=== PATIENT | male | born 1970 | race Caucasian/White ===

== ENCOUNTER → 2017-01-04 18:11 | Outpatient (CLI) | payer OTHER ==
[2017-01-06 06:14] LABS: RAPID PLASMA REAGIN Non Reactive (Non Reactive)
[2017-01-06 08:17] LABS: HEPATITIS C ANTIBODY <0.1 (0.0-0.9)
== END | disposition home or self-care (01) ==
LOC: D.LABREF 18:11
PROVIDERS: Family Medicine
DX: Z20.9 Contact with and (suspected) exposure to unspecified communicable disease (principal)

== ENCOUNTER 2018-03-12 23:06 | Emergency (ER) | payer BC ==
[2018-03-12 23:46] LABS: HEMATOCRIT 44.4 % (42.0-54.0); HEMOGLOBIN 15.2 g/dL (13.5-17.5); LYMPHOCYTES 39.3 % (15-50); MCH 29.5 pg (26.0-34.0); MCHC 34.2 g/dL (31.0-37.0); MCV 86.2 fL (80.0-100.0); MEAN PLATELET VOLUME 8.9 fL (7.4-10.4); NEUTROPHILS 50.3 % (40-80); PLATELET COUNT 168 10x3/uL (130-400); RBC 5.15 10x6/uL (4.20-6.10); RDW 13.7 % (11.5-14.5); WBC 6.4 10x3/uL (4.8-10.8)
[2018-03-13 00:04] LABS: ALBUMIN 3.3 g/dL (3.4-5.0); ALKALINE PHOSPHATASE 109 U/L (46-116); ALT (SGPT) 26 U/L (10-68); CALC OSMOLALITY 287 mosm/kg (275-300); CALCIUM 9.2 mg/dL (8.5-10.1); CARBON DIOXIDE 23.7 mmol/L (21.0-32.0); CHLORIDE - SERUM 108 mmol/L (98-107); CREATININE - SERUM 1.3 mg/dL (0.6-1.3); GLUCOSE 128 mg/dL (74-106); POTASSIUM - SERUM 3.8 mmol/L (3.5-5.1); PROTEIN - SERUM 7.6 g/dL (6.4-8.2); SODIUM 142 mmol/L (136-145); UREA NITROGEN 21 mg/dL (7-18); eGFR NON AFRICAN AMERICAN 63 mL/min (90-120)
[2018-03-13 00:07] LABS: TROPONIN-I < 0.017 ng/mL (0.000-0.060)
[2018-03-26] MEDS ORDERED: GENVOYA PO (15:47)
[2018-03-27 08:40] VITALS: BMI 37.3
== END 2018-03-13 02:24 | disposition home or self-care (01) ==
LOC: D.ER 23:06
PROVIDERS: Emergency Medicine
DX: J45.901 Unspecified asthma with (acute) exacerbation (principal); B20 Human immunodeficiency virus [HIV] disease

== ENCOUNTER 2018-03-15 19:16 | Emergency (ER) | payer BC ==
[2018-03-15 21:13] LABS: APPEARANCE CLEAR (CLEAR); BILIRUBIN NEGATIVE (NEGATIVE); COLOR YELLOW (YELLOW); GLUCOSE NEGATIVE (NEGATIVE); KETONE NEGATIVE (NEGATIVE); NITRITE NEGATIVE (NEGATIVE); PROTEIN NEGATIVE (NEGATIVE); SPECIFIC GRAVITY 1.015 (1.005-1.020); UROBILINOGEN NORMAL (NORMAL)
[2018-03-15 21:39] LABS: BASOPHILS 0.6 % (0-2); EOSINOPHILS 4.3 % (0-7); HEMATOCRIT 45.3 % (42.0-54.0); HEMOGLOBIN 15.8 g/dL (13.5-17.5); IMMATURE GRANULOCYTES 4.8 % (0-5); LYMPHOCYTES 30.3 % (15-50); MCH 30.6 pg (26.0-34.0); MCHC 34.9 g/dL (31.0-37.0); MCV 87.6 fL (80.0-100.0); MEAN PLATELET VOLUME 10.1 fL (7.4-10.4); MONOCYTES 9.3 % (2-11); NEUTROPHILS 50.7 % (40-80); PLATELET COUNT 164 10x3/uL (130-400); RBC 5.17 10x6/uL (4.20-6.10); RDW 13.8 % (11.5-14.5); WBC 7.9 10x3/uL (4.8-10.8)
[2018-03-15 21:50] LABS: INR 0.98 (0.85-1.17); PROTIME 12.6 SECONDS (11.6-15.0)
[2018-03-15 22:08] LABS: ALBUMIN 3.4 g/dL (3.4-5.0); ALKALINE PHOSPHATASE 105 U/L (46-116); ALT (SGPT) 46 U/L (10-68); BILIRUBIN - TOTAL 0.25 mg/dL (0.2-1.3); CALC OSMOLALITY 279 mosm/kg (275-300); CALCIUM 9.1 mg/dL (8.5-10.1); CARBON DIOXIDE 25.4 mmol/L (21.0-32.0); CHLORIDE - SERUM 106 mmol/L (98-107); CREATININE - SERUM 1.2 mg/dL (0.6-1.3); GLUCOSE 97 mg/dL (74-106); POTASSIUM - SERUM 3.8 mmol/L (3.5-5.1); PROTEIN - SERUM 7.5 g/dL (6.4-8.2); SODIUM 138 mmol/L (136-145); UREA NITROGEN 24 mg/dL (7-18); eGFR NON AFRICAN AMERICAN 69 mL/min (90-120)
[2018-03-15 22:15] LABS: CREATINE KINASE 42 UL (21-232); LIPASE 126 U/L (73-393); MAGNESIUM - SERUM 2.2 mg/dL (1.8-2.4); PRO BNP 82 pg/mL (0-125); THYROID STIMULATING HORMONE 1.14 uIU/mL (0.36-3.74)
[2018-03-15 22:23] LABS: TROPONIN-I < 0.017 ng/mL (0.000-0.060)
[2018-03-26] MEDS ORDERED: GENVOYA PO (15:47)
[2018-03-27 08:40] VITALS: BMI 37.3
== END 2018-03-16 01:45 | disposition home or self-care (01) ==
LOC: D.ER 19:16
PROVIDERS: Nurse Practitioner Family
DX: R05 Cough (principal); B20 Human immunodeficiency virus [HIV] disease; J45.909 Unspecified asthma, uncomplicated

== ENCOUNTER 2018-03-27 07:31 | Day surgery (SDC) | payer BC ==
[2018-03-26 16:20] LABS: BASOPHILS 0.4 % (0-2); EOSINOPHILS 4.5 % (0-7); HEMATOCRIT 46.1 % (42.0-54.0); HEMOGLOBIN 16.1 g/dL (13.5-17.5); IMMATURE GRANULOCYTES 2.7 % (0-5); LYMPHOCYTES 30.5 % (15-50); MCH 30.8 pg (26.0-34.0); MCHC 34.9 g/dL (31.0-37.0); MCV 88.3 fL (80.0-100.0); MONOCYTES 7.5 % (2-11); NEUTROPHILS 54.4 % (40-80); PLATELET COUNT 141 10x3/uL (130-400); RBC 5.22 10x6/uL (4.20-6.10); RDW 14.2 % (11.5-14.5); WBC 8.4 10x3/uL (4.8-10.8)
[~2018-03-27] VITALS: Ht 172.7 cm; Wt 111.1 kg
--- NOTE | ~2018-03-27 | OP ---
PATIENT NAME: VISHAL LEBRON MEDICAL RECORD: [id number] :74 LOCATION:[facility] ADMISSION DATE: SURGEON: JUNIOR WILLS MD DATE OF OPERATION: 03/27/2018 SURGEON: Junior Wills MD PREOPERATIVE DIAGNOSIS: Anal condyloma. POSTOPERATIVE DIAGNOSIS: Anal condyloma. PROCEDURE PERFORMED: CO2 laser destruction of anal condyloma, approximately 30 minutes. ANESTHESIA: General. COMPLICATIONS: None. SPECIMENS: Anal condyloma. Case was dirty. OPERATIVE COURSE: After consent was obtained, the patient was taken to the operating room and placed in the supine position on the operating table. Next, general anesthesia was given. The perineum was prepped and draped in typical sterile fashion. Timeout was taken to confirm the correct patient and procedure. The patient was placed in the stirrups. At this time, approximately 30 minutes was spent using the CO2 laser to destroy anal warts too numerous to count. Again, approximately 30 minutes was spent doing on perianal destruction of anal condyloma with a CO2 laser. The patient tolerated the procedure well. At the end of case, all needle and instrument counts were correct. No complications occurred. The patient was extubated and transferred to the PACU in stable condition. TRANSINT:[id number] Voice Confirmation ID: [id number] DOCUMENT ID: [id number] JUNIOR WILLS MD at 1317 CC: [id number] DICTATION DATE: 03/27/18 1040 FUR MIXER: 03/27/18 1249 [facility] [address] [place] [address]
[~2018-03-27 07:31] MED LIST: GENVOYA PO
[2018-03-27 08:40] VITALS: BP 125/76; Ht 172.7 cm; Wt 111.1 kg
== END 2018-03-27 13:37 | disposition home or self-care (01) ==
LOC: D.OPS 07:31 → D.PAN 09:30 → D.OPS 11:00
PROVIDERS: Anesthesiology
DX: A63.0 Anogenital (venereal) warts (principal); Z01.812 Encounter for preprocedural laboratory examination

== ENCOUNTER 2018-05-23 23:17 | Emergency (ER) | payer SELFPAY ==
[~2018-05-23] VITALS: Ht 172.7 cm; Wt 101.4 kg
[2018-05-23 23:21] VITALS: Ht 172.7 cm; Wt 101.4 kg
[2018-05-23 23:56] LABS: HEMATOCRIT 41.3 % (42.0-54.0); HEMOGLOBIN 14.3 g/dL (13.5-17.5); LYMPHOCYTES 44.6 % (15-50); MCH 29.5 pg (26.0-34.0); MCHC 34.6 g/dL (31.0-37.0); MCV 85.3 fL (80.0-100.0); MEAN PLATELET VOLUME 9.6 fL (7.4-10.4); NEUTROPHILS 44.7 % (40-80); PLATELET COUNT 139 10x3/uL (130-400); RBC 4.84 10x6/uL (4.20-6.10); RDW 13.4 % (11.5-14.5); WBC 6.1 10x3/uL (4.8-10.8)
[2018-05-24 00:13] LABS: ALBUMIN 3.3 g/dL (3.4-5.0); ALKALINE PHOSPHATASE 101 U/L (46-116); ALT (SGPT) 31 U/L (10-68); BILIRUBIN - TOTAL 0.37 mg/dL (0.2-1.3); CALC OSMOLALITY 282 mosm/kg (275-300); CALCIUM 8.5 mg/dL (8.5-10.1); CARBON DIOXIDE 21.5 mmol/L (21.0-32.0); CHLORIDE - SERUM 111 mmol/L (98-107); GLUCOSE 127 mg/dL (74-106); POTASSIUM - SERUM 3.4 mmol/L (3.5-5.1); PROTEIN - SERUM 7.4 g/dL (6.4-8.2); SODIUM 140 mmol/L (136-145); UREA NITROGEN 19 mg/dL (7-18); eGFR NON AFRICAN AMERICAN 86 mL/min (90-120)
[2018-05-24 00:28] LABS: CKMB 0.3 U/L (0.0-3.6); CREATINE KINASE 43 UL (21-232); PRO BNP 11 pg/mL (0-125); TROPONIN-I < 0.017 ng/mL (0.000-0.060)
[2018-05-24 00:30] LABS: APTT 25.4 SECONDS (22.8-39.4); INR 0.95 (0.85-1.17); PROTIME 12.3 SECONDS (11.6-15.0)
[2018-05-24 00:31] LABS: D-DIMER-QUANTITATIVE 0.41 ug/mLFEU (0.20-0.54)
[2018-05-24] MEDS ORDERED: OMNICEF300 MG PO (01:08)
[2018-05-24] MEDS ORDERED: ZPAK PO (01:08)
[2018-05-24] MEDS ORDERED: VENTOLIN HFA18 GM INH (01:11)
[2018-05-24] MEDS ORDERED: MEDROL DOSE PACK4 MG PO (01:11)
[2018-05-24 02:22] VITALS: BP 118/74
== END 2018-05-24 01:59 | disposition home or self-care (01) ==
LOC: D.ER 23:17
PROVIDERS: Family Medicine
DX: J20.9 Acute bronchitis, unspecified (principal); R06.02 Shortness of breath; B20 Human immunodeficiency virus [HIV] disease; I10 Essential (primary) hypertension

== ENCOUNTER 2018-07-07 14:08 | Emergency (ER) | payer SELFPAY ==
[~2018-07-07] VITALS: Ht 172.7 cm; Wt 109.1 kg
[~2018-07-07 14:08] MED LIST changes: +MEDROL DOSE PACK4 MG PO; +OMNICEF300 MG PO; +VENTOLIN HFA18 GM INH; +ZPAK PO
[2018-07-07 14:22] VITALS: Ht 172.7 cm; Wt 109.1 kg
[2018-07-07] MEDS ORDERED: PROAIR HFA8.5 GM INH (15:39)
[2018-07-07 15:55] VITALS: BP 142/86
== END 2018-07-07 15:56 | disposition home or self-care (01) ==
LOC: D.ER 14:08
DX: J40 Bronchitis, not specified as acute or chronic (principal); J06.9 Acute upper respiratory infection, unspecified; R09.89 Other specified symptoms and signs involving the circulatory and respiratory systems; R42 Dizziness and giddiness

== ENCOUNTER 2018-12-13 12:10 | Inpatient (IN) | payer SELFPAY ==
[~2018-12-13] VITALS: Ht 172.7 cm; Wt 131.2 kg
[~2018-12-13 12:10] MED LIST changes: +PROAIR HFA8.5 GM INH
--- NOTE | 2018-12-13 12:40 | NUR ---
RT CONTACTED FOR I AM AT [facility].
[2018-12-13 13:41] LABS: BASOPHILS 0.5 % (0-2); EOSINOPHILS 1.3 % (0-7); HEMATOCRIT 45.2 % (42.0-54.0); HEMOGLOBIN 15.2 g/dL (13.5-17.5); IMMATURE GRANULOCYTES 5.1 % (0-5); LYMPHOCYTES 37.7 % (15-50); MCH 29.6 pg (26.0-34.0); MCHC 33.6 g/dL (31.0-37.0); MCV 88.1 fL (80.0-100.0); MEAN PLATELET VOLUME 10.5 fL (7.4-10.4); MONOCYTES 5.4 % (2-11); PLATELET COUNT 133 10x3/uL (130-400); RBC 5.13 10x6/uL (4.20-6.10); RDW 13.8 % (11.5-14.5); WBC 6.1 10x3/uL (4.8-10.8)
[2018-12-13 13:59] LABS: ALBUMIN 3.3 g/dL (3.4-5.0); ALKALINE PHOSPHATASE 122 U/L (46-116); ALT (SGPT) 42 U/L (10-68); BILIRUBIN - TOTAL 0.24 mg/dL (0.2-1.3); CALC OSMOLALITY 289 mosm/kg (275-300); CALCIUM 8.5 mg/dL (8.5-10.1); CARBON DIOXIDE 24.6 mmol/L (21.0-32.0); CHLORIDE - SERUM 109 mmol/L (98-107); CREATININE - SERUM 1.2 mg/dL (0.6-1.3); GLUCOSE 142 mg/dL (74-106); PROTEIN - SERUM 7.3 g/dL (6.4-8.2); SODIUM 144 mmol/L (136-145); UREA NITROGEN 16 mg/dL (7-18); eGFR NON AFRICAN AMERICAN 69 mL/min (90-120)
[2018-12-13 14:04] LABS: PRO BNP 52 pg/mL (0-125); TROPONIN-I < 0.017 ng/mL (0.000-0.060)
[2018-12-13 14:09] VITALS: BP 169/88
--- NOTE | 2018-12-13 14:45 | NUR ---
RECEIVED PATIENT TO FLOOR. VITALS TAKEN. PATIENT C/O TIGHTNESS IN CHEST AND NUMBNESS IN LEFT ARM AND DIZZINESS.
--- NOTE | 2018-12-13 15:28 | NUR ---
REPORT RECEIVED FROM ERICK ANDINO IN ER. PATIENT COMING TO ROOM BY BED.
[2018-12-13 16:25] VITALS: BP 169/88; BMI 27.2
[2018-12-13 20:00] VITALS: BP 105/64
--- NOTE | 2018-12-13 20:20 | NUR ---
EVENING ROUNDS COMPLETED. REPORT RECEIVED. PT SITTING UP IN ROOM WITH EYES OPEN, RR EVEN AND UNLABORED. INTRODUCED SELF TO PT. PT DENIES FURTHER NEEDS, ASSISTED PT IN PUTTING ON GOWN. NO S/S OF DISTRESS. BED IN LOW POSITION. CALL LIGHT IN REACH. WILL CTM.
--- NOTE | 2018-12-13 23:57 | NUR ---
PT SITTING ON SIDE OF BED. DENIES ANY DISCOMFORT. CALL LIGHT WITHIN REACH.
--- NOTE | 2018-12-14 00:09 | NUR ---
INSERTED 20G INTO R HAND X2 STICKS. IV PATENT AND C/D/I. NO C/O PAIN/DISCMOFORT AT IV SITE. SR UP X2, BED IN LOWEST POSITION, CL IN REACH.
[2018-12-14 00:27] VITALS: BP 111/70
[2018-12-14] MEDS ORDERED: BACTRIM 400-801 TAB PO (00:54)
--- NOTE | 2018-12-14 00:56 | NUR ---
PT SITTING UP ON SIDE OF BED, NO S/S OF DISTRESS NOTED. PT STATES HE WANTS MEDICATIONS TO HELP HIM SLEEP. WILL PASS ONTO DAY SHIFT.
[2018-12-14 05:02] VITALS: BP 102/59
--- NOTE | 2018-12-14 06:40 | NUR ---
PT SITTING UP ON SIDE OF BED WITH EYES OPEN, NO S/S OF DISTRESS NOTED. DENIES FURTHER NEEDS. 68 SINUS ON TELE. BED IN LOW POSITION. CALL LIGHT IN REACH. WILL CTM.
[2018-12-14 07:45] VITALS: BP 95/62
--- NOTE | 2018-12-14 08:00 | NUR ---
AM ROUNDS COMPLETED. VSS, AAOX3, RR UNLABORED, NO SS OF DISTRESS. PT STATES HE DID NOT GET MUCH SLEEP LAST NIGHT. AM MEDS GIVEN. PT DENIES ANY FURTHER NEEDS AT THIS TIME. WILL CPOC.
--- NOTE | 2018-12-14 12:45 | NUR ---
STARTED IV ON PT LEFT AC. PT TOLERATED WELL. PT NPO FOR 4HOURS FOR PE STUDIES. WILL CPOC.
--- NOTE | 2018-12-14 13:39 | NUR ---
RESTING QUIETLY NAD NOTED
--- NOTE | 2018-12-14 14:32 | NUR ---
PT OUT FOR CTA, CHEST PE PROTOCOL. WILL CPOC.
--- NOTE | 2018-12-14 15:35 | NUR ---
PT CURRENTLY RESTING IN BED WITH BOTH EYES OPEN. NO S/S OF DISTRESS. PROVIDER ORDERED SCD FOR PT. PT ON SCD. WILL CPOC. CL IN REACH, BED IN LOW.
--- NOTE | 2018-12-14 19:48 | NUR ---
EVENING ROUNDS COMPLETED. REPORT RECEIVED. PT IS SITTING UP ON SIDE OF BED WITH EYES OPEN, RR EVEN AND UNLABORED. INTRODUCED SELF TO PT. PT DENIES FURTHER NEEDS. PT IS AAO AND ANSWERS QUESTIONS APPROPRIATELY. NO S/S OF DISTRESS NOTED. CALL LIGHT IS IN REACH. WILL CTM.
[2018-12-14 20:00] VITALS: BP 117/63
--- NOTE | 2018-12-14 23:13 | NUR ---
PT SITTING UP IN BED WITH EYES OPEN, RR EVEN AND UNLABORED. PT REQUESTED ADDITIONAL FOOD AND WAS PROVIDED SANDWHICH, PT STATED HE MADE A SPECIAL REQUEST TO HAVE LARGER PORTIONS OF FOOD DURING THE DAY. PT STATES HE WANTS TWO SANDWHICHES, PT WAS TOLD THE REMAINING SANDWHICHES ARE RESERVED FOR PT'S ARRIVING TO THE FLOOR AND WE COULD ONLY ALLOW HIM TO BE GIVEN ONE BUT THERE ARE OTHER ADDITIONAL LATE NIGHT SNACK OPTIONS FOR PT. WILL CTM.
[2018-12-15] VITALS: BP 117/65
--- NOTE | 2018-12-15 01:25 | NUR ---
PT SITTING UP IN BED WITH EYES CLOSED, RR EVEN AND UNLABORED. BED IN LOW POSITION. SIDE RAILS UP X2. NO S/S OF DISTRESS NOTED. CALL LIGHT IN REACH. WILL CTM.
--- NOTE | 2018-12-15 02:17 | NUR ---
PT RESTING IN BED WITH NO DISTRESS. CALL LIGHT IN REACH. MONITOR AND CPOC.
[2018-12-15 04:00] VITALS: BP 119/62
--- NOTE | 2018-12-15 06:30 | NUR ---
PT RESTING COMFORTABLY IN BED WITH EYES CLOSED, RR EVEN AND UNLABORED. BED IN LOW POSITION. NO S/S OF DISTRESS NOTED. CALL LIGHT IN REACH. WILL CTM.
--- NOTE | 2018-12-15 07:10 | NUR ---
RECIEVED BEDSIDE REPORT. AM ROUNDS AND ASSESSMENT COMPLETED. VSS, AA0X3, PT STATES "I HAD OCCASIONAL EPISODES OF COUGHING AND WAKING UP LAST NIGHT." PT HAVE NO S/S OF DISTRESS. RR UNLABORED. PT CURRENTLY RECIEVING BREATHING TREATMENT. WILL CPOC. CL IN REACH, BED IN LOW.
[2018-12-15 08:22] VITALS: BP 130/51
[2018-12-15 10:50] VITALS: BP 130/51
[2018-12-15 17:41] VITALS: BP 128/61
--- NOTE | 2018-12-15 19:40 | NUR ---
EVENING ROUNDS COMPLETED. REPORT RECEIVED. PT SITTING UP IN BEDSIDE CHAIR WITH EYES OPEN, RR EVEN AND UNLABORED. INTRODUCED SELF TO PT. PT REQUESTS EVENING SNACK AND SOMETHING TO DRINK. PROVIDED PT WITH APPLE JUICE AND KIKE CRACKERS. PT DENIES FURTHER NEEDS AND COMPLAINTS OF PAIN. NO S/S OF DISTRESS NOTED. CALL LIGHT IN REACH. WILL CTM.
[2018-12-15 20:38] VITALS: BP 125/66
[2018-12-16] VITALS: BP 129/74
--- NOTE | 2018-12-16 01:17 | NUR ---
PT LYING IN BED WITH EYES CLOSED, RR EVEN AND UNLABORED. BED IN LOW POSITION. NO S/S OF DISTRESS NOTED. CALL LIGHT IN REACH. WILL CTM.
--- NOTE | 2018-12-16 02:52 | NUR ---
PT RESTING IN BED WITH NO DISTRESS. RESPS EVEN/NONLABORED. CALL LIGHT IN REACH. SR UP X 2. MONITOR AND CPOC.
[2018-12-16 04:00] VITALS: BP 131/54
--- NOTE | 2018-12-16 05:26 | NUR ---
PT LYING IN BED WITH EYES CLOSED, RR EVEN AND UNLABORED. BED IN LOW POSITION. NO S/S OF DISTRESS NOTED. CALL LIGHT IN REACH. WILL CTM.
[2018-12-16 07:42] VITALS: BP 126/58
--- NOTE | 2018-12-16 09:55 | NUR ---
UP IN CHAIR WITH CALL LIGHT IN REACH. WILL CONT. PLAN OF CARE.
--- NOTE | 2018-12-16 11:05 | NUR ---
PT SITTING IN RECLINER CHAIR. PT HAS NO FURTHER NEEDS AT THIS TIME. CL IN REACH.
[2018-12-16 11:18] VITALS: BP 146/84
[2018-12-16 15:36] VITALS: BP 139/68
--- NOTE | 2018-12-16 16:26 | MORECARE ---
CASE MANAGEMENT DISCHARGE SUMMARY PATIENT: VISHAL LEBRON UNIT: [id number] ADM DATE: 12/13/18 AGE: 48 : 74 SEX: M ROOM/BED: D.2137 AUTHOR: GERALD OLMEDO PHYSICIAN: REFERRING PHYSICIAN: MARTY CIFUENTES MD DATE OF SERVICE: 12/16/18 Discharge Plan Patient Name: VISHAL LEBRON Facility: [facility]:[place] : 1970 Planned Disposition: Home Anticipated Discharge Date: 12/17/18 Discharge Date: Expected LOS: 4 Initial Reviewer: [email or web address] Initial Review Date: 12/16/2018 Generated: 12/16/18 5:26 pm Patient Name: VISHAL LEBRON Page [phone] at 1626 All edits/amendments must be made on the electronic document DICTATION DATE: 12/16/181625 CEMENT BLOCK MAKER: JON 12/16/181625 RPT#: [id number] DC DATE: STATUS: ADM IN [facility] [address] [place] [address] END OF REPORT
--- NOTE | 2018-12-16 16:34 | MORECARE ---
CASE MANAGEMENT DISCHARGE SUMMARY PATIENT: VISHAL LEBRON UNIT: [id number] ADM DATE: 12/13/18 AGE: 48 : 74 SEX: M ROOM/BED: D.2137 AUTHOR: GERALD OLMEDO PHYSICIAN: REFERRING PHYSICIAN: MARTY CIFUENTES MD DATE OF SERVICE: 12/16/18 Discharge Plan Patient Name: VISHAL LEBRON Facility: [facility]:[place] : 1970 Planned Disposition: Home Anticipated Discharge Date: 12/17/18 Discharge Date: Expected LOS: 4 Initial Reviewer: [email or web address] Initial Review Date: 12/16/2018 Generated: 12/16/18 5:34 pm DCPIA - Discharge Planning Initial Assessment Updated by [email or web address]: Ziggy Smith on 12/16/18 4:27 pm * Is the patient Alert and Oriented? Yes * How many steps to enter\exit or inside your home? 30 * PCP [facility] * Pharmacy [facility] ON [facility] * Preadmission Environment Home Alone * ADLs Independent * Equipment None * Other Equipment NO MEDICAL EQUIPMENT PROVIDER PREFERENCE * List name and contact numbers for known caregivers / representatives who currently or will assist patient after discharge: CANDICE LEBRON, SPOUSE, * Verbal permission to speak to the caregivers and representatives has been obtained from the patient. N/A * Community resources currently utilized None * Please name any agencies selected above. NONE * Additional services required to return to the preadmission environment? No * Can the patient safely return to the preadmission environment? Yes * Has this patient been hospitalized within the prior 30 days at any hospital? No Last DP export: 12/16/18 3:26 p Patient Name: VISHAL LEBRON Page [phone] at 1634 All edits/amendments must be made on the electronic document DICTATION DATE: 12/16/18 1633 MACHINE TAPER: JON 12/16/18 1633 RPT#: [id number] DC DATE: STATUS: ADM IN [facility] [address] [place] [address] END OF REPORT
--- NOTE | 2018-12-16 16:42 | MORECARE ---
CASE MANAGEMENT DISCHARGE SUMMARY PATIENT: VISHAL LEBRON UNIT: [id number] ADM DATE: 12/13/18 AGE: 48 : 74 SEX: M ROOM/BED: D.9361 AUTHOR: SHARA,DOC PHYSICIAN: REFERRING PHYSICIAN: MARTY CIFUENTES MD DATE OF SERVICE: 12/16/18 Discharge Plan Patient Name: VISHAL LEBRON Facility: [facility]:[place] : 1970 Planned Disposition: Home Anticipated Discharge Date: 12/17/18 Discharge Date: Expected LOS: 4 Initial Reviewer: [email or web address] Initial Review Date: 12/16/2018 Generated: 12/16/18 5:42 pm Comments DCP- Discharge Planning Updated by [id number]: Ziggy Smith on 12/16/18 3:[address] Patient Name: VISHAL LEBRON Encounter No: [id number] : 1970 Primary Insurance: UNINSURED DISCOUNT PLAN Anticipated DC Date: 12-17-2018 Planned Disposition: Home DISCHARGE PLANNING NOTE: CM RECEIVED ORDER TO CONSULT WITH PT REGARDING INADEQUATE ACCESS TO STABLE HOUSING AND NECESSARY MEDICAL EQUIPMENT; PT'S HOME CONDEMED AND WITH BLACK MOLD, PT USING 'S HOME OXYGEN CONCENTRATOR. CM MET WITH PT IN ROOM TO DISCUSS DISCHARGE PLANNING AND NEEDS. PT REPORTS LIVING AT HOME INDEPENDENTLY AND ALONE. PT HAS NO MEDICAL EQUIPMENT AND NO OUTSIDE SERVICES ASSISTING IN THE HOME. CM DISCUSSED AVAILABILITY OF HOME HEALTH, REHAB SERVICES AND MEDICAL EQUIPMENT. PT DENIES DISCHARGE NEEDS OTHER THAN HE MAY NEED OXYGEN AND A CPAP MACHINE. PT REPORTS BEING IN PROCESS OF MAKING PAYMENTS TO THE BANK SUPERVISOR OF GUIDANCE AND TESTING OF THE [employer]. PT REPORTS RENTING THE ROOMS AT THE [employer] AND LIVING IN THE HOUSE ON THE PROPERTY THAT HAS NOT BEEN CONDEMED, THAT HIS REMODELING TIME AND MONEY ALLOWS. PT REPORTS HE IS RIPPING OUT AND REMODELING PORTIONS OF THE HOME WITH MOLD BUT AGAIN REPORTS THE HOME HAS NOT BEEN COMDEMED. PT HAS NEVER BEEN TESTED FOR THE NEED OF OXGYEN. PT UNDERSTANDS THAT IF HE NEEDS IT, WITHOUT INSURANCE HE HAS TO PAY OUT OF POCKET. PT REPORTS HE HAS FUNDS TO PAY FOR ANY NEEDED MEDICAL EQUIPMENT. PT PLANS TO APPLY FOR INSURANCE NEXT MONTH AND IS AWARE OF THE GOVERNMENT WEBSITE TO APPLY FOR INSURANCE. CM DISCUSSED [employer] WHO WILL RENT OXYGEN CONCENTRATOR FOR $50 PER MONTH AND PORTABLE FOR $10 PER BOTTLE. CM EXPLAINED THAT PT WILL NEED SLEEP TESTING FOR CPAP. PT REPORTS UNDERSTANDING AND STATES HE ALREADY HAD OUTPATIENT APPOINTMENT SCHEDULED WITH DR. ACUÑA, [facility], PRIOR TO THIS ADMISSION. PT DENIES DISCHARGE NEEDS AT THIS TIME. PT REPORTS HIS HOME IS SAFE AND DENIES LIVING IN [facility], REPORTS HE IS REMODELING HIS HOME AND HAS BEEN REPLACING SOME MATERIALS THAT CONTAIN MOLD. PT REPORTS HAVING FUNDS TO PURCHASE ANY NEEDED MEDICAL EQUIPMENT. PT PLANS TO DISCHARGE HOME ALONE, DENIES NEEDS AT THIS TIME. Ziggy Smith, CASE MANAGEMENT DCPIA - Discharge Planning Initial Assessment Updated by [id number]: Ziggy Smith on 12/16/18 4:27 pm * Is the patient Alert and Oriented? Yes * How many steps to enter\exit or inside your home? 30 * PCP [facility] * Pharmacy [facility] ON [facility] * Preadmission Environment Home Alone * ADLs Independent * Equipment None * Other Equipment NO MEDICAL EQUIPMENT PROVIDER PREFERENCE * List name and contact numbers for known caregivers / representatives who currently or will assist patient after discharge: CANDICE LEBRON, SPOUSE, * Verbal permission to speak to the caregivers and representatives has been obtained from the patient. N/A * Community resources currently utilized None * Please name any agencies selected above. NONE * Additional services required to return to the preadmission environment? No * Can the patient safely return to the preadmission environment? Yes * Has this patient been hospitalized within the prior 30 days at any hospital? No Last DP export: 12/16/18 3:34 p Patient Name: VISHAL LEBRON Page [phone] at 1642 All edits/amendments must be made on the electronic document DICTATION DATE: 12/16/181641 LOCKER ROOM MANAGER: JON 12/16/181641 RPT#: [id number] DC DATE: STATUS: ADM IN [facility] [address] [place] [address] END OF REPORT
[2018-12-16 21:11] VITALS: BP 135/84
[2018-12-17 02:25] VITALS: BP 123/79
[2018-12-17 05:46] LABS: THYROID STIMULATING HORMONE 3.45 uIU/mL (0.36-3.74)
[2018-12-17 06:21] LABS: T4 THYROXINE 6.9 ug/dL (4.7-13.3)
[2018-12-17 06:24] VITALS: BP 142/76
[2018-12-17 08:14] VITALS: BP 121/82
--- NOTE | 2018-12-17 09:12 | NUR ---
UP IN CHAIR WITH CALL LIGHT IN REACH. RESP UL ON . DEBBIE NEEDS.
[2018-12-17 11:19] LABS: BASOS 0 % (Not Estab.); CD4 - % CD4 POS. LYMPH 13.5 % (30.8-58.5); CD4 - ABSOLUTE CD4 HELPER 257 /uL (359-1519); EOS 4 % (Not Estab.); EOS (ABSOLUTE) 0.2 x10E3/uL (0.0-0.4); HEMATOCRIT 41.4 % (37.5-51.0); HEMATOLOGY COMMENTS Note: (()); HEMOGLOBIN 13.3 g/dL (13.0-17.7); LYMPHS 35 % (Not Estab.); LYMPHS (ABSOLUTE) 1.9 x10E3/uL (0.7-3.1); MCH 28.5 pg (26.6-33.0); MCHC 32.1 g/dL (31.5-35.7); MCV 89 fL (79-97); MONOCYTES 5 % (Not Estab.); MONOCYTES (ABSOLUTE) 0.3 x10E3/uL (0.1-0.9); NEUTROPHILS 53 % (Not Estab.); NEUTROPHILS (ABSOLUTE) 2.9 x10E3/uL (1.4-7.0); PLATELETS 145 x10E3/uL (150-379); RBC 4.66 x10E6/uL (4.14-5.80); RDW 14.5 % (12.3-15.4); WBC 5.5 x10E3/uL (3.4-10.8)
[2018-12-17 11:57] VITALS: BP 125/76
[2018-12-17 14:31] VITALS: Ht 172.7 cm; Wt 131.2 kg
[2018-12-17 15:52] VITALS: BP 134/81
[2018-12-17 20:00] VITALS: BP 124/91
--- NOTE | 2018-12-17 21:13 | NUR ---
HS MEDS GIVEN WITH FRESH ICE WATER. PT DENIES PAIN OR NEEDS.
--- NOTE | 2018-12-18 02:14 | NUR ---
RESTING WITH EYES CLOSED, RESPERATIONS EVEN, NO S.S DISTRESS NOTED.
[2018-12-18 04:00] VITALS: BP 133/82
[2018-12-18 08:15] VITALS: BP 130/75
--- NOTE | 2018-12-18 09:33 | NUR ---
UP IN CHAIR WITH CALL LIGHT IN REACH. DEBBIE NEEDS AT THIS TIME. WILL MONITOR.
[2018-12-18 11:52] VITALS: BP 118/73
[2018-12-18 15:26] VITALS: BP 126/74
[2018-12-18 20:00] VITALS: BP 122/72
--- NOTE | 2018-12-18 20:00 | NUR ---
INITIAL ASSESSMENT COMPLETED - PT SITTING UP IN BED, RR EVEN AND UL. A/O X4. NO C/O PAIN OR DISCOMFORT AT THIS TIME. REQUESTS SANDWICH, MILK, AND COLA. GIVEN PER PT REQUEST. NO OTHER NEEDS NOTED AT THIS TIME. IV PATENT, C/D/I IN L FA AND L AC, BOTH SL'D UPON ASSESSMENT. CL IN REACH, SR UP X2, BED IN LOWEST POSITION. WCTM AND FOLLOW POC.
[2018-12-19] VITALS: BP 121/70
--- NOTE | 2018-12-19 04:14 | NUR ---
RESUMING PT CARE - PT RESTING IN BED WITH EYES CLOSED. RR EVEN AND UL, NO S/S OF DISTRESS. NO NEEDS NOTED AT THIS TIME. CL IN REACH, SR UPX2, BED IN LOWEST POSITION.
[2018-12-19 04:32] VITALS: BP 139/73
--- NOTE | 2018-12-19 07:30 | NUR ---
RESUMING PT CARE, PT SITTING UP IN CHAIR AT BEDSIDE AND IS ALERT AND ORIENTED X3, STATES HE IS TO D/C TODAY. CALL LIGHT IN REACH, WILL GIVE MORNING MEDS THEN D/C PT PER ORDERS. WILL CONTINUE TO MONITOR AND FOLLOW PLAN OF CARE.
[2018-12-19 09:00] VITALS: BP 132/65
--- NOTE | 2018-12-19 09:52 | NUR ---
UP IN CHAIR WITH CALL LIGHT IN REACH. DEBBIE NEEDS AT THIS TIME.
[2018-12-19] MEDS ORDERED: TESSALON PERLE100 MG PO (09:56)
[2018-12-19] MEDS ORDERED: PROTONIX40 MG PO (09:57)
[2018-12-19] MEDS ORDERED: FLORAJEN3 CAPS460 MG PO (09:57)
[2018-12-19] MEDS ORDERED: MUCINEX DM ER1 EAC1 PO (09:57)
--- NOTE | 2018-12-19 10:21 | MORECARE ---
CASE MANAGEMENT DISCHARGE SUMMARY PATIENT: VISHAL LEBRON UNIT: [id number] ADM DATE: 12/13/18 AGE: 48 : 74 SEX: M ROOM/BED: D.5364 AUTHOR: SHARA,DOC PHYSICIAN: REFERRING PHYSICIAN: MARTY CIFUENTES MD DATE OF SERVICE: 12/19/18 Discharge Plan Patient Name: VISHAL LEBRON Facility: [facility]:[place] : 1970 Planned Disposition: Home Anticipated Discharge Date: 12/17/18 Discharge Date: Expected LOS: 4 Initial Reviewer: [email or web address] Initial Review Date: 12/16/2018 Generated: 12/19/18 11:21 am Comments DCP- Discharge Planning Updated by [id number]: Ziggy Smith on 12/16/18 3:[address] Patient Name: VISHAL LEBRON Encounter No: [id number] : 1970 Primary Insurance: UNINSURED DISCOUNT PLAN Anticipated DC Date: 12-17-2018 Planned Disposition: Home DISCHARGE PLANNING NOTE: CM RECEIVED ORDER TO CONSULT WITH PT REGARDING INADEQUATE ACCESS TO STABLE HOUSING AND NECESSARY MEDICAL EQUIPMENT; PT'S HOME CONDEMED AND WITH BLACK MOLD, PT USING 'S HOME OXYGEN CONCENTRATOR. CM MET WITH PT IN ROOM TO DISCUSS DISCHARGE PLANNING AND NEEDS. PT REPORTS LIVING AT HOME INDEPENDENTLY AND ALONE. PT HAS NO MEDICAL EQUIPMENT AND NO OUTSIDE SERVICES ASSISTING IN THE HOME. CM DISCUSSED AVAILABILITY OF HOME HEALTH, REHAB SERVICES AND MEDICAL EQUIPMENT. PT DENIES DISCHARGE NEEDS OTHER THAN HE MAY NEED OXYGEN AND A CPAP MACHINE. PT REPORTS BEING IN PROCESS OF MAKING PAYMENTS TO THE BANK COMPUTER SYSTEMS ENGINEER OF THE [employer]. PT REPORTS RENTING THE ROOMS AT THE [employer] AND LIVING IN THE HOUSE ON THE PROPERTY THAT HAS NOT BEEN CONDEMED, THAT HIS REMODELING TIME AND MONEY ALLOWS. PT REPORTS HE IS RIPPING OUT AND REMODELING PORTIONS OF THE HOME WITH MOLD BUT AGAIN REPORTS THE HOME HAS NOT BEEN COMDEMED. PT HAS NEVER BEEN TESTED FOR THE NEED OF OXGYEN. PT UNDERSTANDS THAT IF HE NEEDS IT, WITHOUT INSURANCE HE HAS TO PAY OUT OF POCKET. PT REPORTS HE HAS FUNDS TO PAY FOR ANY NEEDED MEDICAL EQUIPMENT. PT PLANS TO APPLY FOR INSURANCE NEXT MONTH AND IS AWARE OF THE GOVERNMENT WEBSITE TO APPLY FOR INSURANCE. CM DISCUSSED [employer] WHO WILL RENT OXYGEN CONCENTRATOR FOR $50 PER MONTH AND PORTABLE FOR $10 PER BOTTLE. CM EXPLAINED THAT PT WILL NEED SLEEP TESTING FOR CPAP. PT REPORTS UNDERSTANDING AND STATES HE ALREADY HAD OUTPATIENT APPOINTMENT SCHEDULED WITH DR. ACUÑA, [facility], PRIOR TO THIS ADMISSION. PT DENIES DISCHARGE NEEDS AT THIS TIME. PT REPORTS HIS HOME IS SAFE AND DEN[facility], REPORTS HE IS REMODELING HIS HOME AND HAS BEEN REPLACING SOME MATERIALS THAT CONTAIN MOLD. PT REPORTS HAVING FUNDS TO PURCHASE ANY NEEDED MEDICAL EQUIPMENT. PT PLANS TO DISCHARGE HOME ALONE, DENIES NEEDS AT THIS TIME. Ziggy Smith, CASE MANAGEMENT DCPIA - Discharge Planning Initial Assessment Updated by [id number]: Ziggy Smith on 12/16/18 4:27 pm * Is the patient Alert and Oriented? Yes * How many steps to enter\exit or inside your home? 30 * [facility] * Pharmacy [facility] * Preadmission Environment Home Alone * ADLs Independent * Equipment None * Other Equipment NO MEDICAL EQUIPMENT PROVIDER PREFERENCE * List name and contact numbers for known caregivers / representatives who currently or will assist patient after discharge: CANDICE LEBRON, SPOUSE, * Verbal permission to speak to the caregivers and representatives has been obtained from the patient. N/A * Community resources currently utilized None * Please name any agencies selected above. NONE * Additional services required to return to the preadmission environment? No * Can the patient safely return to the preadmission environment? Yes * Has this patient been hospitalized within the prior 30 days at any hospital? No External Providers External Provider: [facility] Next Contact Date: 12/19/2018 Service Request Date: Service Type: Resolution: Reviewer: Comments: Last DP export: 12/16/18 3:42 p Patient Name: VISHAL LEBRON Page [phone] at 1021 All edits/amendments must be made on the electronic document DICTATION DATE: 12/19/18 1021 INSPECTOR WELDED PARTS: JON 12/19/18 1021 RPT#: [id number] DC DATE: STATUS: ADM IN [facility] [address] [facility] [place] [address] END OF REPORT
[2018-12-19] MEDS ORDERED: IPRAT-ALBUT 0.5-3 ML UPD (10:32)
--- NOTE | 2018-12-19 11:32 | MORECARE ---
CASE MANAGEMENT DISCHARGE SUMMARY PATIENT: VISHAL LEBRON UNIT: [id number] ADM DATE: 12/13/18 AGE: 48 : 74 SEX: M ROOM/BED: D.6090 AUTHOR: SHARA,DOC PHYSICIAN: REFERRING PHYSICIAN: MARTY CIFUENTES MD DATE OF SERVICE: 12/19/18 Discharge Plan Patient Name: VISHAL LEBRON Facility: [facility]:[place] : 1970 Planned Disposition: Home Anticipated Discharge Date: 12/19/18 Discharge Date: Expected LOS: 6 Initial Reviewer: [email or web address] Initial Review Date: 12/16/2018 Generated: 12/19/18 12:32 pm Comments DCP- Discharge Planning Updated by [id number]: Ziggy Smith on 12/16/18 3:[address] Patient Name: VISHAL LEBRON Encounter No: [id number] : 1970 Primary Insurance: UNINSURED DISCOUNT PLAN Anticipated DC Date: 12-17-2018 Planned Disposition: Home DISCHARGE PLANNING NOTE: CM RECEIVED ORDER TO CONSULT WITH PT REGARDING INADEQUATE ACCESS TO STABLE HOUSING AND NECESSARY MEDICAL EQUIPMENT; PT'S HOME CONDEMED AND WITH BLACK MOLD, PT USING 'S HOME OXYGEN CONCENTRATOR. CM MET WITH PT IN ROOM TO DISCUSS DISCHARGE PLANNING AND NEEDS. PT REPORTS LIVING AT HOME INDEPENDENTLY AND ALONE. PT HAS NO MEDICAL EQUIPMENT AND NO OUTSIDE SERVICES ASSISTING IN THE HOME. CM DISCUSSED AVAILABILITY OF HOME HEALTH, REHAB SERVICES AND MEDICAL EQUIPMENT. PT DENIES DISCHARGE NEEDS OTHER THAN HE MAY NEED OXYGEN AND A CPAP MACHINE. PT REPORTS BEING IN PROCESS OF MAKING PAYMENTS TO THE BANK AB INITIO ETL DEVELOPER OF THE [employer]. PT REPORTS RENTING THE ROOMS AT THE [employer] AND LIVING IN THE HOUSE ON THE PROPERTY THAT HAS NOT BEEN CONDEMED, THAT HIS REMODELING TIME AND MONEY ALLOWS. PT REPORTS HE IS RIPPING OUT AND REMODELING PORTIONS OF THE HOME WITH MOLD BUT AGAIN REPORTS THE HOME HAS NOT BEEN COMDEMED. PT HAS NEVER BEEN TESTED FOR THE NEED OF OXGYEN. PT UNDERSTANDS THAT IF HE NEEDS IT, WITHOUT INSURANCE HE HAS TO PAY OUT OF POCKET. PT REPORTS HE HAS FUNDS TO PAY FOR ANY NEEDED MEDICAL EQUIPMENT. PT PLANS TO APPLY FOR INSURANCE NEXT MONTH AND IS AWARE OF THE GOVERNMENT WEBSITE TO APPLY FOR INSURANCE. CM DISCUSSED [employer] WHO WILL RENT OXYGEN CONCENTRATOR FOR $50 PER MONTH AND PORTABLE FOR $10 PER BOTTLE. CM EXPLAINED THAT PT WILL NEED SLEEP TESTING FOR CPAP. PT REPORTS UNDERSTANDING AND STATES HE ALREADY HAD OUTPATIENT APPOINTMENT SCHEDULED WITH DR. ACUÑA, [facility]OLOG[facility], PRIOR TO THIS ADMISSION. PT DENIES DISCHARGE NEEDS AT THIS TIME. PT REPORTS HIS HOME IS SAFE AND DENIES LIVING IN [facility], REPORTS HE IS REMODELING HIS HOME AND HAS BEEN REPLACING SOME MATERIALS THAT CONTAIN MOLD. PT REPORTS HAVING FUNDS TO PURCHASE ANY NEEDED MEDICAL EQUIPMENT. PT PLANS TO DISCHARGE HOME ALONE, DENIES NEEDS AT THIS TIME. Ziggy Smith, CASE MANAGEMENT DCPIA - Discharge Planning Initial Assessment Updated by [id number]: Ziggy Smith on 12/16/18 4:27 pm * Is the patient Alert and Oriented? Yes * How many steps to enter\exit or inside your home? 30 * PCP [facility] * Pharmacy [facility] * Preadmission Environment Home Alone * ADLs Independent * Equipment None * Other Equipment NO MEDICAL EQUIPMENT PROVIDER PREFERENCE * List name and contact numbers for known caregivers / representatives who currently or will assist patient after discharge: CANDICE LEBRON, SPOUSE, * Verbal permission to speak to the caregivers and representatives has been obtained from the patient. N/A * Community resources currently utilized None * Please name any agencies selected above. NONE * Additional services required to return to the preadmission environment? No * Can the patient safely return to the preadmission environment? Yes * Has this patient been hospitalized within the prior 30 days at any hospital? No Last DP export: 12/19/18 9:21 a Patient Name: VISHAL LEBRON Page [phone] at 1132 All edits/amendments must be made on the electronic document DICTATION DATE: 12/19/18 113 SCIENTIFIC LINGUIST: JON 12/19/18 113 RPT#: [id number] DC DATE: STATUS: ADM IN [facility] [address] [facility] [place] [address] END OF REPORT
--- NOTE | 2018-12-19 11:38 | MORECARE ---
CASE MANAGEMENT DISCHARGE SUMMARY PATIENT: VISHAL LEBRON UNIT: [id number] ADM DATE: 12/13/18 AGE: 48 : 74 SEX: M ROOM/BED: D.9563 AUTHOR: SHARA,DOC PHYSICIAN: REFERRING PHYSICIAN: MARTY CIFUENTES MD DATE OF SERVICE: 12/19/18 Discharge Plan Patient Name: VISHAL LEBRON Facility: [facility]:[place] : 1970 Planned Disposition: Home Anticipated Discharge Date: 12/19/18 Discharge Date: Expected LOS: 6 Initial Reviewer: [id number] Initial Review Date: 12/16/2018 Generated: 12/19/18 12:38 pm Comments DCP- Discharge Planning Updated by [id number]: Ziggy Smith on 12/19/18 10:[address] Patient Name: VISHAL LEBRON Encounter No: [id number] : 1970 Primary Insurance: UNINSURED DISCOUNT PLAN Anticipated DC Date: 12-19-2018 Planned Disposition: Home DCP follow-up note: CM MET WITH PT IN ROOM TO DISCUSS DISCHARGE NEEDS AND PLANNING. CM DISCUSSED AVAILABILITY OF HOME HEALTH, REHAB SERVICES AND MEDICAL EQUIPMENT. PT DENIES DISCHARGE NEEDS OTHER THAN NEBULIZER. PT STATES HE WILL BE GETTING ANOTHER IV ANTIBIOTIC BEFORE GOING HOME TODAY. PT WILL HAVE "SOMEONE" TO TRANSPORT HOME AT DISCHARGE. CM PROVIDED PT WITH CHOICE LIST FOR MEDICAL EQUIPMENT, DISCUSSED PROVIDERS AND SELF PAY STATUS FOR NEBULIZER. PT WANTS TO USE [facility], CHOICE LETTER SIGNED. CM CALLED [facility], , SPOKE TO ANTONIO AND PROVIDED REFERRAL INFORMATION. CM FAXED REFERRAL TO [facility] AT [phone]. [facility] TO ARRANGE NEBULIZER FOR PT TO WAITER/WAITRESS TOURIST CLASS AT STORE. PT NOTIFIED AND PROVIDED WITH [facility] ADDRESS AND PHONE NUMBER. PT DENIES FURTHER NEEDS. ALEJANDRA CASTANEDA DCP- Discharge Planning Updated by [id number]: Ziggy Smith on 12/16/18 3:[address] Patient Name: VISHAL LEBRON Encounter No: [id number] : 1970 Primary Insurance: UNINSURED DISCOUNT PLAN Anticipated DC Date: 12-17-2018 Planned Disposition: Home DISCHARGE PLANNING NOTE: CM RECEIVED ORDER TO CONSULT WITH PT REGARDING INADEQUATE ACCESS TO STABLE HOUSING AND NECESSARY MEDICAL EQUIPMENT; PT'S HOME CONDEMED AND WITH BLACK MOLD, PT USING 'S HOME OXYGEN CONCENTRATOR. CM MET WITH PT IN ROOM TO DISCUSS DISCHARGE PLANNING AND NEEDS. PT REPORTS LIVING AT HOME INDEPENDENTLY AND ALONE. PT HAS NO MEDICAL EQUIPMENT AND NO OUTSIDE SERVICES ASSISTING IN THE HOME. CM DISCUSSED AVAILABILITY OF HOME HEALTH, REHAB SERVICES AND MEDICAL EQUIPMENT. PT DENIES DISCHARGE NEEDS OTHER THAN HE MAY NEED OXYGEN AND A CPAP MACHINE. PT REPORTS BEING IN PROCESS OF MAKING PAYMENTS TO THE NONO GASTROENTEROLOGY PROFESSOR OF THE appiris. PT REPORTS RENTING THE ROOMS AT THE [facility] AND LIVING IN THE HOUSE ON THE PROPERTY THAT HAS NOT BEEN CONDEMED, THAT HIS REMODELING TIME AND MONEY ALLOWS. PT REPORTS HE IS RIPPING OUT AND REMODELING PORTIONS OF THE HOME WITH MOLD BUT AGAIN REPORTS THE HOME HAS NOT BEEN COMDEMED. PT HAS NEVER BEEN TESTED FOR THE NEED OF OXGYEN. PT UNDERSTANDS THAT IF HE NEEDS IT, WITHOUT INSURANCE HE HAS TO PAY OUT OF POCKET. PT REPORTS HE HAS FUNDS TO PAY FOR ANY NEEDED MEDICAL EQUIPMENT. PT PLANS TO APPLY FOR INSURANCE NEXT MONTH AND IS AWARE OF THE [employer] WEBSITE TO APPLY FOR INSURANCE. CM DISCUSSED [facility] WHO WILL RENT OXYGEN CONCENTRATOR FOR $50 PER MONTH AND PORTABLE FOR $10 PER BOTTLE. CM EXPLAINED THAT PT WILL NEED SLEEP TESTING FOR CPAP. PT REPORTS UNDERSTANDING AND STATES HE ALREADY HAD OUTPATIENT APPOINTMENT SCHEDULED WITH DR. ACUÑA, PUL[facility]OLOGISTS, PRIOR TO THIS ADMISSION. PT DENIES DISCHARGE NEEDS AT THIS TIME. PT REPORTS HIS HOME IS SAFE AND DENIES LIVING IN CONDEMED HOME, REPORTS HE IS REMODELING HIS HOME AND HAS BEEN REPLACING SOME MATERIALS THAT CONTAIN MOLD. PT REPORTS HAVING FUNDS TO PURCHASE ANY NEEDED MEDICAL EQUIPMENT. PT PLANS TO DISCHARGE HOME ALONE, DENIES NEEDS AT THIS TIME. Ziggy Smith, CASE MANAGEMENT DCPIA - Discharge Planning Initial Assessment Updated by [id number]: Ziggy Smith on 12/16/18 4:27 pm * Is the patient Alert and Oriented? Yes * How many steps to enter\\exit or inside your home? 30 * P[facility] * Pharmacy [facility] * Preadmission Environment Home Alone * ADLs Independent * Equipment None * Other Equipment NO MEDICAL EQUIPMENT PROVIDER PREFERENCE * List name and contact numbers for known caregivers / representatives who currently or will assist patient after discharge: CANDICE LEBRON, SPOUSE, * Verbal permission to speak to the caregivers and representatives has been obtained from the patient. N/A * Community resources currently utilized None * Please name any agencies selected above. NONE * Additional services required to return to the preadmission environment? No * Can the patient safely return to the preadmission environment? Yes * Has this patient been hospitalized within the prior 30 days at any hospital? No Last DP export: 12/19/18 10:32 a Patient Name: VISHAL LEBRON Page [id number] at 1138 All edits/amendments must be made on the electronic document DICTATION DATE: 12/19/181137 FINANCIAL ANALYST INTERN: JON 12/19/181137 RPT#: [id number] DC DATE: STATUS: ADM IN [facility] [address] [place] [address] END OF REPORT
--- NOTE | 2018-12-19 13:18 | NUR ---
D/C INSTRUCTIONS GIVEN, IV REMOVED FROM LEFT AC AND LEFT FOREARM. PT DENIES NEEDS. TAKEN TO PRIVATE VEHICLE VIA WHEELCHAIR.
[2018-12-22 20:06] LABS: AEROBE ID Final report (())
== END 2018-12-19 13:22 | disposition home or self-care (01) | DRG 974 ==
LOC: D.ER 12:10 → D.EDHOLD 13:51 → D.M2 13:51
PROVIDERS: Emergency Medicine; Internal Medicine Pulmonary Disease; Student in an Organized Health Care Education/Training Program; ADMIT Family Medicine
DX: B20 Human immunodeficiency virus [HIV] disease (principal); J96.01 Acute respiratory failure with hypoxia; J18.1 Lobar pneumonia, unspecified organism; J44.1 Chronic obstructive pulmonary disease with (acute) exacerbation; J44.0 Chronic obstructive pulmonary disease with (acute) lower respiratory infection; J20.9 Acute bronchitis, unspecified; G47.00 Insomnia, unspecified; H53.8 Other visual disturbances; R42 Dizziness and giddiness; Z87.891 Personal history of nicotine dependence